=== PATIENT | female | born 1980 | race Caucasian/White ===

== ENCOUNTER 2022-09-05 05:51 | Emergency (ER) | payer MEDICAID ==
[~2022-09-05] VITALS: Ht 170.2 cm; Wt 74.8 kg
--- NOTE | 2022-09-05 06:36 | NUR ---
RONISEROBERTO C/O BACK OF HEADACHE AND RAN OUT OF XANAX. PATIENT IS AAOX4. ABLE TO MAKE NEEDS KNOWN. PLACED COMFORTABLY IN BED. VITALS CHECKED.
--- NOTE | 2022-09-05 06:40 | NUR ---
SEEN BY DR GUZMAN AT BEDSIDE
[2022-09-05] MEDS ORDERED: ACETAMINOPHEN ES 500 MG TABLET ONE (06:52)
[2022-09-05] MEDS ORDERED: diphenhydrAMINE HCL 50 MG CAPSULE ONE (06:52)
[2022-09-05] MEDS ORDERED: PROCHLORPERAZINE MALEATE 10 MG TABLET ONE (06:53)
[2022-09-05] MEDS ORDERED: diphenhydrAMINE HCL 25 MG CAPSULE PO ONE (07:00)
[2022-09-05] MEDS ORDERED: ACETAMINOPHEN 325 MG TABLET PO ONE (07:00)
[2022-09-05] MEDS ORDERED: PROCHLORPERAZINE MALEATE 10 MG TABLET PO ONE (07:00)
--- NOTE | 2022-09-05 07:01 | NUR ---
PT REFUSED SOME OF MEDS PRESCRIBED. MADE AWARE. WAIVER FOR NOT BEING SIGNED BY PATIENT. CT SCAN MADE AWARE
--- NOTE | 2022-09-05 07:17 | NUR ---
REPORT GIVEN TO REJI CASTAÑEDA
--- NOTE | 2022-09-05 07:17 | NUR ---
CAME BACK FROM CT DEPT
--- NOTE | 2022-09-05 07:35 | NUR ---
Patient discharged to home in stable condition. Written and verbal after care instructions given. Patient verbalizes understanding of instruction.
[2022-09-05 07:42] VITALS: BP 139/88
== END 2022-09-05 07:43 | disposition home or self-care (01) ==
LOC: ER 06:00
DX: G43.909 Migraine, unspecified, not intractable, without status migrainosus (principal); F17.210 Nicotine dependence, cigarettes, uncomplicated; Z88.5 Allergy status to narcotic agent; Z88.8 Allergy status to other drugs, medicaments and biological substances
CPT/HCPCS: 99284; 70450; 99406; Q0164; Q0163